=== PATIENT | male | born 1965 | race Native Hawaiian/Other Pacific Islander ===

== ENCOUNTER 2019-09-11 19:49 | Emergency (ER) | payer OTHER ==
[~2019-09-11] VITALS: Ht 177.8 cm; Wt 66.3 kg
[2019-09-11 20:27] LABS: PLATELET COUNT 196 K/uL (142-355)
[2019-09-11 20:36] LABS: POTASSIUM 4.3 mmol/L (3.6-5.2)
[2019-09-11 22:10] VITALS: BP 149/74; TEMP 98.9
[2019-09-12] MEDS ORDERED: TYLENOL325 MG PO (02:49)
[2019-09-12] MEDS ORDERED: ATEN50TA36 PO (02:53)
[2019-09-12] MEDS ORDERED: CALCIUM500 MG PO (02:57)
[2019-09-12] MEDS ORDERED: CELEXA10 MG PO (02:59)
[2019-09-12] MEDS ORDERED: DIVA125C PO (03:08)
[2019-09-12] MEDS ORDERED: HALO5INJ3 IM (03:17)
[2019-09-12] MEDS ORDERED: KETOCONAZOLE21 EX (03:37)
[2019-09-12] MEDS ORDERED: OMEPRAZOLE DR40 MG PO (03:39)
[2019-09-12] MEDS ORDERED: RISP1TAB PO (03:41)
[2019-09-12] MEDS ORDERED: TRIA0.1C5 TOP (03:49)
[2019-09-30] MEDS ORDERED: CYAN10009 IM (11:40)
[2019-09-30] MEDS ORDERED: DIVA125C PO (11:41)
[2019-09-30] MEDS ORDERED: VITAMIN D50000 UNIT PO (11:41)
[2019-09-30] MEDS ORDERED: CITA20TA2 PO (11:41)
== END 2019-09-11 22:10 | disposition other institution (70) ==
LOC: ED 19:49
PROVIDERS: Family Medicine
DX: R46.89 Other symptoms and signs involving appearance and behavior (principal); I10 Essential (primary) hypertension; Z04.6 Encounter for general psychiatric examination, requested by authority
CPT/HCPCS: 36415; 80053; 85027; 93005; 99285

== ENCOUNTER 2020-12-19 19:25 | Emergency (ER) | payer OTHER ==
[~2020-12-19] VITALS: Ht 162.6 cm; Wt 68.9 kg
[~2020-12-19 19:25] MED LIST: ATEN50TA36 PO; CALCIUM500 MG PO; CELEXA10 MG PO; CITA20TA2 PO; CYAN10009 IM; DIVA125C PO; HALO5INJ3 IM; KETOCONAZOLE21 EX; OMEPRAZOLE DR40 MG PO; RISP1TAB PO; TRIA0.1C5 TOP; TYLENOL325 MG PO; VITAMIN D50000 UNIT PO
[2020-12-19 20:00] LABS: PLATELET COUNT 118 K/uL (142-355)
[2020-12-19 20:11] LABS: POTASSIUM 4.4 mmol/L (3.6-5.2)
[2020-12-19 20:45] VITALS: BP 142/83; TEMP 97.9
[2020-12-19] MEDS ORDERED: CYAN10009 IM (22:43)
[2020-12-19] MEDS ORDERED: ZYPREXA ZYDI5 MG PO (22:47)
[2020-12-19] MEDS ORDERED: DOCU100C10 PO (22:50)
[2020-12-19] MEDS ORDERED: RISPERDAL3 MG PO (22:52)
[2020-12-19] MEDS ORDERED: DIVA125C PO (22:55)
[2020-12-19] MEDS ORDERED: MIRALAX PO (23:01)
[2021-01-02] MEDS ORDERED: CYAN10009 IM (09:25)
[2021-01-02] MEDS ORDERED: RISP1TAB PO ×2 (09:25)
[2021-01-02] MEDS ORDERED: FLUOXETINE20 MG PO (09:26)
[2021-01-02] MEDS ORDERED: OLANZAPINE10 MG PO (09:26)
== END 2020-12-19 20:45 | disposition still patient (30) ==
LOC: ED 19:25
PROVIDERS: Emergency Medicine Emergency Medical Services
DX: F31.89 Other bipolar disorder (principal); R46.89 Other symptoms and signs involving appearance and behavior; Z11.59 Encounter for screening for other viral diseases; Z04.6 Encounter for general psychiatric examination, requested by authority
CPT/HCPCS: 36415; 80053; 81000; 85027; 87635; 93005; 99283; U0003

== ENCOUNTER 2022-03-08 17:59 | Emergency (ER) | payer OTHER ==
[~2022-03-08] VITALS: Ht 162.6 cm; Wt 74.8 kg
[2022-03-08 17:59] VITALS: BP 173/79; TEMP 98.2
[~2022-03-08 17:59] MED LIST changes: +DOCU100C10 PO; +FLUOXETINE20 MG PO; +MIRALAX PO; +OLANZAPINE10 MG PO; +RISPERDAL3 MG PO; +ZYPREXA ZYDI5 MG PO
[2022-03-08 18:38] LABS: PLATELET COUNT 127 K/uL (142-355)
[2022-03-08 18:48] LABS: POTASSIUM 4.7 mmol/L (3.6-5.2)
[2022-03-08] MEDS ORDERED: VITAMIN D50000 UNIT PO (21:30)
[2022-03-08] MEDS ORDERED: TRAZODONE HYDRO50 MG PO (21:35)
[2022-03-08] MEDS ORDERED: TRIA0.1C19 TOP (21:38)
[2022-03-08] MEDS ORDERED: CYAN10009 IM (21:40)
[2022-03-08] MEDS ORDERED: VITAMIN D1000 UNI1 PO (21:42)
[2022-03-08] MEDS ORDERED: OLANZAPINE15 M1 PO (21:44)
[2022-03-08] MEDS ORDERED: MUCINEX DM1 TA1 PO (21:48)
[2022-03-08] MEDS ORDERED: BACLOFEN10 MG PO (21:50)
[2022-03-08] MEDS ORDERED: HALO5INJ3 IM (21:54)
== END 2022-03-08 19:21 | disposition still patient (30) ==
LOC: ED 17:59
PROVIDERS: Emergency Medicine
DX: F31.89 Other bipolar disorder (principal); R45.1 Restlessness and agitation; Z11.52 Encounter for screening for COVID-19; Z04.6 Encounter for general psychiatric examination, requested by authority
CPT/HCPCS: 36415; 80053; 85027; 87635; 93005; 99283; U0003

== ENCOUNTER 2022-07-13 15:03 | Emergency (ER) | payer OTHER ==
[~2022-07-13] VITALS: Ht 157.5 cm; Wt 64.4 kg
[2022-07-13 15:03] VITALS: TEMP 97.1
[~2022-07-13 15:03] MED LIST changes: +BACLOFEN10 MG PO; +HALO5TAB10 PO; +MUCINEX DM1 TA1 PO; +OLANZAPINE15 M1 PO; +OXCARBAZEPIN300 MG PO; +TRAZODONE HYDRO50 MG PO; +TRIA0.1C19 TOP; +VITAMIN D1000 UNI1 PO
[2022-07-13 15:37] LABS: PLATELET COUNT 176 K/uL (142-355)
[2022-07-13 16:30] VITALS: BP 144/76
[2022-07-13] MEDS ORDERED: CYAN10009 IM (16:49)
[2022-07-13] MEDS ORDERED: FERROUS SULF325 MG PO (16:51)
[2022-07-13] MEDS ORDERED: MELATONIN5 M2 PO (16:52)
[2022-07-13] MEDS ORDERED: TRAZ50TA36 PO (16:53)
[2022-07-13] MEDS ORDERED: SERT50TA PO (16:53)
[2022-07-13] MEDS ORDERED: ZYRTEC ALLERGY10 M1 PO (16:54)
[2022-07-13] MEDS ORDERED: DOK100 MG PO (16:55)
[2022-07-13] MEDS ORDERED: ZIPR20CA PO (16:56)
[2022-07-13] MEDS ORDERED: THIA100T8 PO (16:57)
[2022-07-13] MEDS ORDERED: ZYPREXA ZYDI10 MG PO (16:58)
[2022-07-13] MEDS ORDERED: BACL10TA4 PO (16:59)
[2022-07-13] MEDS ORDERED: HYOSCYAMINE0.125 M2 PO (17:00)
== END 2022-07-13 16:41 | disposition still patient (30) ==
LOC: ED 15:03
PROVIDERS: Emergency Medicine
DX: R46.89 Other symptoms and signs involving appearance and behavior (principal); F31.89 Other bipolar disorder; Z11.52 Encounter for screening for COVID-19; Z04.6 Encounter for general psychiatric examination, requested by authority
CPT/HCPCS: 36415; 80053; 85027; 87635; 93005; 99283; U0003

== ENCOUNTER 2022-10-27 19:28 | Emergency (ER) | payer OTHER ==
[~2022-10-27] VITALS: Ht 154.9 cm; Wt 68.0 kg
[~2022-10-27 19:28] MED LIST changes: +ACET-206 PO; +BACL10TA4 PO; +CETI10TA PO; +DIVALPROEX250 MG PO; +DOK100 MG PO; +FERROUS SULF325 MG PO; +GUAI200S10 PO; +HYOSCYAMINE0.125 M2 PO; +MAGNSUS68 PO; +MELATONIN5 M2 PO; +OLANZAPINE5 MG PO; +SERT50TA PO; +THIA100T8 PO; +TRAZ50TA36 PO; +ZIPR20CA PO; +ZYPREXA ZYDI10 MG PO; +ZYRTEC ALLERGY10 M1 PO
[2022-10-27 19:47] LABS: PLATELET COUNT 195 K/uL (142-355)
[2022-10-27 19:55] LABS: POTASSIUM 4.2 mmol/L (3.6-5.2)
[2022-10-27 20:52] VITALS: BP 139/60
[2022-10-29] MEDS ORDERED: CYAN10009 IM (09:56)
[2022-10-29] MEDS ORDERED: DIVA125C PO ×2 (09:59)
[2022-10-29] MEDS ORDERED: TAMS0.4C PO (10:01)
[2022-10-29] MEDS ORDERED: TRAZODONE HYDR150 MG PO (10:02)
[2022-10-29] MEDS ORDERED: HALO5TAB10 PO ×2 (10:04→10:10)
[2022-10-29] MEDS ORDERED: TRILEPTAL300 MG PO (10:06)
[2022-10-29] MEDS ORDERED: SERT100T PO (10:07)
[2022-10-29] MEDS ORDERED: OLANZAPINE20 M1 PO (10:07)
[2022-10-29] MEDS ORDERED: ZYPREXA ZYDI5 MG PO (10:08)
== END 2022-10-27 20:52 | disposition still patient (30) ==
LOC: ED 19:28
PROVIDERS: Emergency Medicine
DX: F31.89 Other bipolar disorder (principal); G80.9 Cerebral palsy, unspecified; G31.84 Mild cognitive impairment of uncertain or unknown etiology; R45.1 Restlessness and agitation; I48.91 Unspecified atrial fibrillation; Z11.52 Encounter for screening for COVID-19; Z04.6 Encounter for general psychiatric examination, requested by authority
CPT/HCPCS: 36415; 80053; 85027; 87635; 93005; 99283; U0003